=== PATIENT | male | born 1955 | race Caucasian/White ===

== ENCOUNTER 2016-08-18 07:24 | Day surgery (SDC) | payer OTHER ==
--- NOTE | ~2016-08-18 | EGD ---
EGD REPORT [facility] [address] [address] NAME: JAKE HOLT : 55 STATUS : REG [facility] PAT#: [id number] AGE: 61 ADM/REG DATE : 08/18/16 MR#: [id number] REPORT SERV DATE: 08/18/16 DICTATED BY: LUIS FELIPE CALVILLO DATE: 08/18/16 REPORT STATUS : Draft TRANSCRIBED BY: [facility] DATE: 08/18/16 [facility] Patient Name: Jake Holt Date of : 1955 Attending MD: LUIS FELIPE CALVILLO MD Procedure Date No Time: 08/18/2016 Procedure: Colonoscopy Indications: High risk colon cancer surveillance: Personal history of colonic polyps Referring MD: JAMIE LUJAN MD Medicines: Monitored Anesthesia Care Complications: No immediate complications. Procedure: Pre-Anesthesia Assessment: - ASA Grade Assessment: III - A patient with severe systemic disease. After I obtained informed consent, the scope was passed under direct vision. Throughout the procedure, the patient's blood pressure, pulse, and oxygen saturations were monitored continuously. The CF [id number] was introduced through the anus and advanced to the cecum, identified by appendiceal orifice and ileocecal valve. The colonoscopy was performed with moderate difficulty due to significant looping. Successful completion of the procedure was aided by applying abdominal pressure. The patient tolerated the procedure well. The quality of the bowel preparation was good. Findings: The digital rectal exam was normal. Pertinent negatives include no palpable rectal lesions. Multiple diverticula were found in the sigmoid colon. Hemorrhoids were found during retroflexion and were mild. Two sessile polyps were found in the ascending colon. The polyps were 2 to 3 mm in size. These polyps were removed with a cold biopsy forceps. Resection and retrieval were complete. A sessile polyp was found in the sigmoid colon. The polyp was 6 mm in size. The polyp was removed with a cold biopsy forceps. Resection and retrieval were complete. Three sessile polyps were found in the rectum. The polyps were 3 to 4 mm in size. These polyps were removed with a cold biopsy forceps. Resection and retrieval were complete. Impression: - Diverticulosis in the sigmoid colon. - Hemorrhoids. - Two 2 to 3 mm polyps in the ascending colon. Resected EGD REPORT [place] [address] [facility] [place]. [address] NAME: JAKE HOLT : 55 STATUS : REG [facility] PAT#: [id number] AGE: 61 ADM/REG DATE : 08/18/16 MR#: [id number] REPORT SERV DATE: 08/18/16 DICTATED BY: LUIS FELIPE CALVILLO DATE: 08/18/16 REPORT STATUS : Draft TRANSCRIBED BY: [employer] DATE: 08/18/16 and retrieved. - One 6 mm polyp in the sigmoid colon. Resected and retrieved. - Three 3 to 4 mm polyps in the rectum. Resected and retrieved. Recommendation: - Patient has a contact number available for emergencies. The signs and symptoms of potential delayed complications were discussed with the patient. Return to normal activities tomorrow. Written discharge instructions were provided to the patient. - Regular diet. - Continue present medications. - Repeat colonoscopy in 3 - 5 years for surveillance based on pathology results. - Return to GI clinic PRN. - Resume ELIQUIS at prior dose today. Refer to managing physician for further adjustment of therapy. Procedure Code(s): --- Professional --- 07379, Colonoscopy, flexible, proximal to splenic flexure; with biopsy, single or multiple Diagnosis Code(s): --- Professional --- K64.9, Unspecified hemorrhoids K57.30, Diverticulosis of large intestine without perforation or abscess without bleeding K62.1, Rectal polyp D12.5, Benign neoplasm of sigmoid colon D12.2, Benign neoplasm of ascending colon Z86.010, Personal history of colonic polyps CPT copyright 2013 [employer]. All rights reserved. The codes documented in this report are preliminary and upon body die maker review may be revised to meet current compliance requirements. LUIS FELIPE CALVILLO MD 08/18/2016 10:07 AM This report has been signed electronically. Number of Addenda: 0 Note Initiated On: 08/18/2016 9:37 AM Scope Withdrawal Time 0 hours 10 minutes 4 seconds EGD REPORT [facility] [address] [id number] NAME: JAKE HOLT : [birth year] STATUS : REG [facility] PAT#: [id number] AGE: 61 ADM/REG DATE : 08/18/16 MR#: [id number] REPORT SERV DATE: 08/18/16 DICTATED BY: LUIS FELIPE CALVILLO DATE: 08/18/16 REPORT STATUS : Draft TRANSCRIBED BY: [email or web address] DATE: 08/18/16 [facility] [address] [address]
[~2016-08-18 07:24] MED LIST: ASAB PO; CRESTOR5 MG PO; EFFIENT10 PO; ELIQUIS 5 MG TAB5 MG PO; FLOMAX4 PO; IMDUR30 PO; LOP25 PO; NORV5 PO; OXYCODONE PO; PLAVIX PO
== END 2016-08-18 23:59 | disposition home or self-care (01) ==
LOC: DMU 07:24
PROVIDERS: Internal Medicine Gastroenterology
PROC: 0DBP8ZZ Excision of Rectum, Via Natural or Artificial Opening Endoscopic (ICD-10-PCS; 2016-08-18)
PROC: 0DBN8ZZ Excision of Sigmoid Colon, Via Natural or Artificial Opening Endoscopic (ICD-10-PCS; 2016-08-18)
PROC: 0DBK8ZZ Excision of Ascending Colon, Via Natural or Artificial Opening Endoscopic (ICD-10-PCS; principal; 2016-08-18 09:00)
DX: Z12.11 Encounter for screening for malignant neoplasm of colon (principal); D12.5 Benign neoplasm of sigmoid colon; K57.30 Diverticulosis of large intestine without perforation or abscess without bleeding; K64.9 Unspecified hemorrhoids; K62.1 Rectal polyp; I10 Essential (primary) hypertension; I48.91 Unspecified atrial fibrillation; I25.10 Atherosclerotic heart disease of native coronary artery without angina pectoris; E78.00 Pure hypercholesterolemia, unspecified; E11.9 Type 2 diabetes mellitus without complications; E78.5 Hyperlipidemia, unspecified; F17.290 Nicotine dependence, other tobacco product, uncomplicated; Z86.010 Personal history of colon polyps; Z95.5 Presence of coronary angioplasty implant and graft; Z88.8 Allergy status to other drugs, medicaments and biological substances; Z88.0 Allergy status to penicillin; Z79.01 Long term (current) use of anticoagulants; Z79.899 Other long term (current) drug therapy
CPT/HCPCS: 82962; 88305